=== PATIENT | male | born 1945 | race Caucasian/White ===

== ENCOUNTER 2017-08-22 15:46 | Emergency (ER) | payer MEDICARE, OTHER ==
[2017-08-22] MEDS ORDERED: KETOROLAC TROMETHAMINE INJ 60 MG/2 ML VIAL IM ONE (16:28)
[2017-08-22] MEDS ORDERED: HYDROcodone 10MG/APAP 325MG 1 EA TAB PO ONE (16:28)
--- NOTE | 2017-08-22 16:55 | ED.PDOC ---
History of Present Illness - General Source: patient Exam Limitations: no limitations - History of Present Illness Initial Comments: PT REPORTS TRIPPING AND FALLING UPON GETTING OUT OF BED IN THE MIDDLE OF THE NIGHT. PT NOW REPORTS LEFT THORACIC BACK PAIN THAT IS WORSE WHEN TAKING DEEP BREATHS. PT THINKS HE MAY HAVE BROKEN RIBS. Timing/Duration: 7-24 hours Quality/Severity: moderate, sharpness Improving Factors: immobilization Worsening Factors: movement Associated Symptoms: denies symptoms <Carter Escobar - Last Filed: 08/22/17 16:53> <Lennox Arguello - Last Filed: 08/22/17 20:06> - General Chief Complaint: Back Pain or Injury Stated Complaint: back pain Time Seen by Provider: 08/22/17 16:27 - History of Present Illness Allergies/Adverse Reactions: Allergies Penicillins Allergy (Verified 08/22/17 16:20) Home Medications: Ambulatory Orders Ascorbic Acid [Vitamin C] 500 mg PO DAILY 12/23/14 Aspirin [Baby Aspirin] 81 mg PO QD 12/23/14 Atorvastatin Calcium [Lipitor] 40 mg PO BEDTIME 12/23/14 Metoprolol Tartrate 50 mg PO BID 12/23/14 Hasty-3 Fatty Acids [Fish Oil 1000 mg] 2 cap PO BEDTIME 12/23/14 Olmesartan Medoxomil-Hydrochlo [Benicar Hct 40-25 mg] 1 tab PO BEDTIME 08/22/17 Umeclidinium-Vilanterol [Anoro Ellipta 62.5-25 Mcg/INH] 1 aer IN DAILY 08/22/17 Review of Systems - Review of Systems Constitutional: Denies: chills, fever EENTM: Denies: blurred vision, mouth pain Respiratory: Denies: cough, short of breath Cardiology: Denies: chest pain, palpitations Gastrointestinal/Abdominal: Denies: abdominal pain, vomiting Musculoskeletal: States: back pain. Denies: neck pain Skin: Denies: change in color, dryness Neurological: Denies: headache, paresthesia Endocrine: States: no symptoms reported Hematologic/Lymphatic: States: no symptoms reported <Carter Escobar - Last Filed: 08/22/17 16:53> Past Medical History (General) - Patient Medical History Hx of COPD: Yes Hx Cardiac Disorders: Yes - CAD, CABG Hx Hypertension: Yes Hx Cancer: Yes - epigottis Surgical History: coronary bypass surgery - Vaccination History Hx Influenza Vaccination: Yes Hx Pneumococcal Vaccination: No - Social History Hx Tobacco Use: Yes Hx Alcohol Use: No Hx Substance Use: No Hx Substance Use Treatment: No Hx Depression: No <Carter Escobar - Last Filed: 08/22/17 16:53> Family Medical History - Family History Father Family History: Unknown Living Status: Unknown <Carter Escobar - Last Filed: 08/22/17 16:53> Physical Exam - Physical Exam General Appearance: Alert, Obvious distress, Well Developed, Well Groomed, Well Hydrated Eyes, Ears, Nose, Throat Exam: PERRL/EOMI, normal ENT inspection Neck Exam: non-tender, full range of motion Cardiovascular/Respiratory: regular rate, rhythm, no M/R/G, normal breath sounds , no respiratory distress Gastrointestinal/Abdominal: non tender, soft Back Exam: no vertebral tenderness, other - TENDERNESS TO THE LEFT PARATHORACIC REGION AND LEFT LATERAL CHEST WALL. Extremity Exam: no evidence of injury, normal range of motion Neurologic: no motor/sensory deficits, alert, normal mood/affect, oriented x 3 Skin Exam: normal color, warm/dry <Carter Escobar - Last Filed: 08/22/17 16:53> Progress - Progress Progress: 08/22/17 20:06 08/22/17 17:29 IV Care:Saline Lock per Protoc QSHIFT Telemetry .ONCE Sodium Chloride 0.9% (Flush) [Saline Flush Syringe] 10 ml IV PRN PRN 08/22/17 17:30 Hold Metformin x 48Hrs [id number] Pulse Oximetry Assessment DAILY 08/23/17 09:00 Pulse Ox Daily Laboratory Results WBC 12.5 K/mm3 (4.8-10.8) H 08/22/17 18:00 RBC 5.11 M/mm3 (4.70-6.10) 08/22/17 18:00 Hgb 17.6 gm/dL (14.0-18.0) 08/22/17 18:00 Hct 49.9 % (42.0-52.0) 08/22/17 18:00 MCV 97.7 fl (80.0-94.0) H 08/22/17 18:00 MCH 34.4 pg (27.0-31.0) H 08/22/17 18:00 MCHC 35.3 g/dL (33.0-37.0) 08/22/17 18:00 RDW 13.2 % (11.5-14.5) 08/22/17 18:00 Plt Count 228 K/mm3 (130-400) 08/22/17 18:00 MPV 7.4 fl (7.40-10.4) 08/22/17 18:00 Absolute Neuts (auto) 10.50 K/uL (1.8-6.8) H 08/22/17 18:00 Absolute Lymphs (auto) 1.00 K/uL (1.0-3.4) 08/22/17 18:00 Absolute Monos (auto) 0.90 K/uL (0.2-0.8) H 08/22/17 18:00 Absolute Eos (auto) 0.00 K/uL (0.0-0.4) 08/22/17 18:00 Absolute Basos (auto) 0.00 K/uL (0.0-0.1) 08/22/17 18:00 Neutrophils % 84.0 % (42.0-78.0) H 08/22/17 18:00 Lymphocytes % 7.8 % (20.0-50.0) L 08/22/17 18:00 Monocytes % 7.5 % (2.0-9.0) 08/22/17 18:00 Eosinophils % 0.4 % (1.0-5.0) L 08/22/17 18:00 Basophils % 0.3 % (0.0-2.0) 08/22/17 18:00 PT 10.4 SECONDS (9.4-12.5) 08/22/17 18:00 INR 0.920 08/22/17 18:00 PTT (SP) 30.9 SECONDS (25.1-36.5) 08/22/17 18:00 Sodium 123 mmol/L (135-145) L 08/22/17 18:00 Potassium 4.2 mmol/L (3.6-5.0) 08/22/17 18:00 Chloride 80 mmol/L (101-111) L 08/22/17 18:00 Carbon Dioxide 32 mmol/L (21-31) H 08/22/17 18:00 Anion Gap 15.2 (12-18) 08/22/17 18:00 BUN 13 mg/dL (7-18) 08/22/17 18:00 Creatinine 0.67 mg/dL (0.6-1.3) 08/22/17 18:00 BUN/Creatinine Ratio 19.4 (10-20) 08/22/17 18:00 Random Glucose 110 mg/dL (70-105) H 08/22/17 18:00 Serum Osmolality 248.5 mOsm/L (275-295) L* 08/22/17 18:00 Calcium 9.7 mg/dL (8.4-10.2) 08/22/17 18:00 Total Bilirubin 1.4 mg/dL (0.2-1.0) H 08/22/17 18:00 AST 24 IU/L (10-42) 08/22/17 18:00 ALT 31 IU/L (10-60) 08/22/17 18:00 Alkaline Phosphatase 123 IU/L (42-121) H 08/22/17 18:00 Creatine Kinase 148 IU/L (38-174) 08/22/17 18:00 CK-MB (CK-2) 4.5 ng/mL (0.0-4.4) H 08/22/17 18:00 CK-MB (CK-2) % 3.04 % (0.0-3.5) 08/22/17 18:00 Troponin I < 0.02 ng/mL (0.01-0.05) 08/22/17 18:00 Serum Total Protein 8.0 gm/dL (6.4-8.2) 08/22/17 18:00 Albumin 4.9 g/dl (3.2-5.5) 08/22/17 18:00 Globulin 3.1 gm/dL (2.3-3.5) 08/22/17 18:00 Albumin/Globulin Ratio 1.6 (1.1-1.9) 08/22/17 18:00 - Consult/PCP Time Called: 21:50 Consult/PCP: dr. Youngblood Consult Reason/Comments: multiple rib fractures possible spleenic injury advise transfer <Lennox Arguello - Last Filed: 08/22/17 20:06> Departure <Carter Escobar - Last Filed: 08/22/17 16:53> - Departure Time of Disposition: 20:00 Diet: other Activity: other <Lennox Arguello - Last Filed: 08/22/17 20:06> - Departure Clinical Impression: Multiple rib fractures involving four or more ribs, Splenic mass Disposition: Transfer to Hospital Condition: Good Departure Forms: ED Discharge - Pt. Copy, Patient Portal Self Enrollment Instructions: DI for Low Back Pain Referrals: CHARMAINE GAMBOA [Primary Care Provider] - 1-2 Weeks Home Medications: Ambulatory Orders Ascorbic Acid [Vitamin C] 500 mg PO DAILY 12/23/14 Aspirin [Baby Aspirin] 81 mg PO QD 12/23/14 Atorvastatin Calcium [Lipitor] 40 mg PO BEDTIME 12/23/14 Metoprolol Tartrate 50 mg PO BID 12/23/14 Hasty-3 Fatty Acids [Fish Oil 1000 mg] 2 cap PO BEDTIME 12/23/14 Olmesartan Medoxomil-Hydrochlo [Benicar Hct 40-25 mg] 1 tab PO BEDTIME 08/22/17 Umeclidinium-Vilanterol [Anoro Ellipta 62.5-25 Mcg/INH] 1 aer IN DAILY 08/22/17 Critical Care Note - Critical Care Note Total Time (mins): 40 <Lennox Arguello - Last Filed: 08/22/17 20:06> Transfer to Outside Facility - Transfer Information Accepting Provider:: Dr. Cruz Accepting Facility: [facility] Reason for Transfer: required specialist not available - Trauma Surgery <Lennox Arguello - Last Filed: 08/22/17 20:06>
--- NOTE | 2017-08-22 17:22 | RAD ---
EXAM DESCRIPTION: Ribs,Left 3 Views CLINICAL HISTORY: 72 years Male CHEST PAIN S/P FALL COMPARISON: 12/23/2014 FINDINGS: Heart size is stable. Mild elevation the left hemidiaphragm. Calcified mass in the left midlung field which appears stable. Findings concerning for acute fractures of the posterior lateral left second rib and fractures of the posterior left fourth through ninth ribs. Small amount of atelectasis in the left lung base. Small effusion is not excluded. IMPRESSION: Nondisplaced left rib fractures involving the second and the fourth through ninth ribs with some associated atelectasis in the left lung base and possible small amount of fluid No pneumothorax noted Electronically signed by: Ana Lilia Frederick 08/22/2017 5:20 PM PHARMACY SALES ASSISTANT
[2017-08-22] MEDS ORDERED: SODIUM CHLORIDE 0.9% (FLUSH) 10 ML SYG IV PRN (17:29)
--- NOTE | 2017-08-22 19:23 | CT ---
EXAM DESCRIPTION: Chest w/Contrast CLINICAL HISTORY: chest trauma, multiple rib fxs COMPARISON: None Available. TECHNIQUE: Contiguous axial images of the chest were obtained from the thoracic inlet up to the upper abdomen followed by reconstruction images. This exam was performed according to our departmental dose-optimization program, which includes automated exposure control, adjustment of the mA and/or kV according to patient size and/or use of iterative reconstruction technique. FINDINGS: There is a calcified 2.9 cm mass in the left anterior lung. There is a possible mass of the superior spleen. Hematoma is not excluded. This lesion is not particularly well-defined but measures approximately 4.2 cm AP. There are fractures of the left eighth, ninth ribs posteriorly. Bony degenerative changes are present. No other acute bony abnormality. No pneumothorax. Nonspecific 5 mm nodules at the right posterior lateral lung. Spiculated nodule seen in the right posterolateral lung on image 34, and measures approximately 12 mm overall. At the posterior left lung base is a 4 mm nonspecific nodule and a 5 mm nonspecific nodule. Two poorly defined nodular densities are seen at the left anterior lung and measure less than 5 mm each. The aorta is of normal contour and tapering. IMPRESSION: Pulmonary nodules. Left rib fractures. Possible hematoma versus high attenuation poorly defined lesion in the spleen of other etiology. Neoplasm is not excluded. Follow-up is recommended. Electronically signed by: Eduardo Thornton 08/22/2017 7:21 PM ALARM MECHANISM ADJUSTER
[2017-08-22 20:20] VITALS: BP 135/74; TEMP 97.6; O2SAT 94
== END 2017-08-22 20:40 | disposition short-term general hospital (02) ==
LOC: ER 15:46
DX: S22.42XA Multiple fractures of ribs, left side, initial encounter for closed fracture (principal); R16.1 Splenomegaly, not elsewhere classified; J44.9 Chronic obstructive pulmonary disease, unspecified; I25.10 Atherosclerotic heart disease of native coronary artery without angina pectoris; I10 Essential (primary) hypertension; Z95.1 Presence of aortocoronary bypass graft; Z79.82 Long term (current) use of aspirin; Z88.0 Allergy status to penicillin; Z79.899 Other long term (current) drug therapy; Z85.89 Personal history of malignant neoplasm of other organs and systems; W01.0XXA Fall on same level from slipping, tripping and stumbling without subsequent striking against object, initial encounter; Y92.009 Unspecified place in unspecified non-institutional (private) residence as the place of occurrence of the external cause
CPT/HCPCS: 36415; 71101; 71260; 80053; 82550; 82553; 84484; 85025; 85610; 85730; 94760; J1885

== ENCOUNTER 2017-08-28 15:10 | Inpatient (IN) | payer MEDICARE, OTHER ==
[2017-08-28] MEDS ORDERED: SODIUM PHOS/BIPHOS ENEMA ADULT 133 ML BTTL PR PRN (16:04)
[2017-08-28] MEDS ORDERED: ACETAMINOPHEN 500 MG TAB PO PRN (16:04)
[2017-08-28] MEDS ORDERED: TEMAZEPAM 15 MG CAP PO PRN (16:04)
[2017-08-28] MEDS ORDERED: MAGNESIUM HYDROXIDE 30 ML UD PO PRN (16:04)
[2017-08-28] MEDS ORDERED: HYDROcodone 5MG/APAP 325MG 1 EA TAB PO PRN (16:04)
--- NOTE | 2017-08-28 16:19 | PCM.CORE ---
Physician DVT/VTE - Nurse DVT Assessment & Total Each Risk Factor Represents 3 Points: Medical PT with Hx of CO, CHF, Severe infection/sepsis Each Risk Factor Represents 2 Points: Age 60-74 Each Risk Factor Represents 1 Point: Hx of smoking past year Each Risk Factor is 1 Point: Obesity (BMI >25) DVT Assessment Score: 7 - 3-4 High Risk Pharmacological: Enoxaparin 40 mg SQ Daily - 5 or more Very High Risk Treatments: Early Ambulation *, Sequential Compression Device
--- NOTE | 2017-08-28 17:11 | HP ---
SUPERVISING PHYSICIAN: Hosea Rodriguez MD REASON FOR ADMISSION: Strengthening. HISTORY OF PRESENT ILLNESS: This is a 72-year-old male patient who originally sustained a fall on 08/21/17. At this time, he was found to have multiple rib fractures on the left and reportedly second rib and the fourth through ninth ribs. At the same time, CT showed he had a splenic hematoma. For that reason, he was transferred from [facility] Emergency Room to [facility]. During this time, he was admitted under trauma services and was seen also by critical care services and psychiatry. He had some delirium which was attributed to his medical condition in addition to the fact that he has a history of alcohol abuse. During his admission, his lab work remained stable. He was placed on alcohol withdrawal protocol, but after he was examined by psychiatry, the benzodiazepines were discontinued. He remained stable to the point that he could be discharged from the Acute setting , but required Swing Bed admission. At the time of examination, the patient is alert. He does complain of some discomfort on the left side. He still states that he is having a productive cough, however, it is clear in color at this time. He was noted to have some hyponatremia on his labs at [facility], but this was attributed to his chronic alcohol abuse as well. PAST MEDICAL HISTORY: 1. Coronary artery disease. 2. Chronic obstructive pulmonary disease. 3. Hyperlipidemia. 4. Hypertension. 5. Chronic alcohol abuse. 6. Nicotine dependency. PAST SURGICAL HISTORY: 1. Coronary artery bypass grafting. MEDICATIONS: 1. Metoprolol 50 mg b.i.d. 2. Benicar/HCTZ 40/25 mg p.o. daily. 3. Atorvastatin 40 mg p.o. daily. 4. Aspirin 81 mg p.o. daily. 5. Vitamin C 500 mg p.o. daily. 6. Fish oil 1000 mg p.o. b.i.d. 7. Anoro Ellipta 62.5 mcg/25 mcg 1 puff daily. ALLERGIES: PENICILLIN. FAMILY HISTORY: Reviewed and deemed noncontributory. SOCIAL HISTORY: The patient is a smoker who smokes 2 to 3 cigars a day. He also admits to drinking 4 glasses of whiskey per day. He is . REVIEW OF SYSTEMS: CONSTITUTIONAL: Denies fever, chills, no recent weight loss or weight gain. HEENT: No headaches, vision changes, ear pain, nasal congestion or throat pain. CARDIOVASCULAR: No chest pain, palpitations, peripheral edema. RESPIRATORY: Positive for cough. No hemoptysis, no pleuritic chest pain. He does have some pain with inspiration due to his rib fractures. GASTROINTESTINAL: No nausea, vomiting, diarrhea, constipation or abdominal pain. GENITOURINARY: No dysuria, frequency, or flank pain. SKIN: No rashes, lesions, or wounds. ENDOCRINE: No polydipsia, polyuria, polyphagia, no heat or cold intolerance. PSYCHIATRIC: He was noted to have delirium at [facility]. No depression or suicidal tendencies. PHYSICAL EXAMINATION: VITAL SIGNS: GENERAL: Mr. Fleming is a 72-year-old male patient in no acute distress at this time. HEENT: Normocephalic, atraumatic. Pupils are equal and reactive. Nose with no drainage. Throat with moist buccal mucosa. NECK: Supple. Midline trachea. No jugular venous distention. CHEST: Symmetrical with equal rise and fall of the chest with inspiration and expiration. Lungs sounds with expiratory wheezing bilaterally. There are no rhonchi or rales noted. CARDIOVASCULAR: Regular rate and rhythm. Normal S1, S2. ABDOMEN: Soft. Positive bowel sounds. No tenderness to palpation. No organomegaly. GENITOURINARY: Exam deferred. EXTREMITIES: Lower extremities with no significant edema. Positive peripheral pulses at 2+. Capillary refill less than 2 seconds. NEUROLOGIC: The patient is alert and oriented. He moves all extremities. Extraocular muscles are intact. LABORATORY: Labs and radiology reports have been reviewed from [facility]. ASSESSMENT: 1. Decondition/diffuse myopathy. 2. Multiple rib fractures. 3. Splenic hematoma. 4. ETOH abuse. 5. Nicotine dependency with chronic obstructive pulmonary disease. PLAN: 1. At this point, status post fall, the patient will stay in Swing Bed for currently an undetermined amount of days to increase strength and conditioning prior to being able to be discharged home. 2. Secondary to the patient's history of smoking as well as his rib fractures, pulmonary toileting will need to be encouraged. At this time, we will resume his DuoNeb and ensure that he is coughing and deep breathing as well as not deteriorating. 3. Physical therapy will be consulted and activity per their orders. 4. We will resume his diet as well as home medications at this time as well. 5. DVT prophylaxis with Lovenox as well as SCDs. 6. We will check some labs in the morning including CBC and chemistries. The patient does have a noted splenic hematoma. However, the hemoglobin remained stable at [facility], but given the fact that we are starting DVT prophylaxis, we will need to check his labs in the morning. We will also check his chest x-ray to ensure there is no interval development of an infiltrate. #[id number] [facility]
[2017-08-28] MEDS: ENOXAPARIN SODIUM 40 MG/0.4 ML SYG SUBCU SCH ×2 (18:56→19:20)
[2017-08-28] MEDS: IPRATROPIUM/ALBUTEROL 3 ML VIAL INH SCH (21:13)
--- NOTE | 2017-08-29 07:17 | RAD ---
EXAM: Two view chest. INDICATION: Rib fractures. COMPARISON: Chest x-ray and CT: 08/22/2017. FINDINGS: There is a left basilar airspace opacity with small left pleural effusion. There is a calcified granuloma along the left midlung. Nondisplaced left-sided eighth and ninth rib fractures are better appreciated on the prior CT scan. There is no pneumothorax. IMPRESSION: Left basilar airspace opacity with small left pleural effusion. The nondisplaced left sided rib fractures are better appreciated on the prior CT scan Electronically signed by: Ajay Mcconnell MD 08/29/2017 7:16 AM [facility] Workstation: [id number]
[2017-08-29] MEDS: IPRATROPIUM/ALBUTEROL 3 ML VIAL INH SCH ×4 (08:35→20:30)
[2017-08-29] MEDS: ENOXAPARIN SODIUM 40 MG/0.4 ML SYG SUBCU SCH (10:00)
[2017-08-29] MEDS: DOCUSATE SODIUM 100 MG CAP PO SCH (10:00)
[2017-08-29] MEDS: NON-FORMULARY MEDICATION 1 EA MIS (Umeclidinium-Vilanterol [Anoro Ellipta 62.5-25 Mcg/Inh] IN SCH (14:05)
[2017-08-29] MEDS ORDERED: METOPROLOL TARTRATE 50 MG TAB ONE (15:51)
[2017-08-29] MEDS: hydroCHLOROthiazide 25 MG TAB PO SCH (15:54)
[2017-08-29] MEDS: GABAPENTIN 100 MG CAP PO SCH ×2 (15:54→20:53)
[2017-08-29] MEDS: ASPIRIN (CHEWABLE) 81 MG TAB PO SCH (15:54)
[2017-08-29] MEDS: NON-FORMULARY MEDICATION 1 EA MIS (Olmesartan Medoxomil [Benicar] 20 MG) PO SCH (15:54)
[2017-08-29] MEDS: METOPROLOL TARTRATE 50 MG TAB PO SCH (17:17)
[2017-08-29] MEDS: ATORVASTATIN 20 MG TAB PO SCH (20:53)
[2017-08-30] MEDS ORDERED: ASCORBIC ACID 500 MG TAB ONE (07:11)
[2017-08-30] MEDS: METOPROLOL TARTRATE 50 MG TAB PO SCH ×2 (07:45→22:21)
[2017-08-30] MEDS: IPRATROPIUM/ALBUTEROL 3 ML VIAL INH SCH ×3 (08:23→20:25)
[2017-08-30] MEDS: NON-FORMULARY MEDICATION 1 EA MIS (Umeclidinium-Vilanterol [Anoro Ellipta 62.5-25 Mcg/Inh] IN SCH (08:26)
[2017-08-30] MEDS: DOCUSATE SODIUM 100 MG CAP PO SCH (09:10)
[2017-08-30] MEDS: ASCORBIC ACID 500 MG TAB PO SCH (09:10)
[2017-08-30] MEDS: GABAPENTIN 100 MG CAP PO SCH ×3 (09:10→21:10)
[2017-08-30] MEDS: hydroCHLOROthiazide 25 MG TAB PO SCH (09:10)
[2017-08-30] MEDS: ASPIRIN (CHEWABLE) 81 MG TAB PO SCH (09:10)
[2017-08-30] MEDS: ENOXAPARIN SODIUM 40 MG/0.4 ML SYG SUBCU SCH (09:11)
[2017-08-30] MEDS: NON-FORMULARY MEDICATION 1 EA MIS (Olmesartan Medoxomil [Benicar] 20 MG) PO SCH (10:05)
[2017-08-30] MEDS: VALSARTAN 80 MG TAB PO SCH (11:49)
[2017-08-30] MEDS: ATORVASTATIN 20 MG TAB PO SCH (21:10)
[2017-08-31] MEDS ORDERED: NON-FORMULARY MEDICATION 1 EA MIS (Umeclidinium-Vilanterol [Anoro Ellipta 62.5-25 Mcg/Inh] INH SCH (08:00)
[2017-08-31] MEDS: ENOXAPARIN SODIUM 40 MG/0.4 ML SYG SUBCU SCH (08:18)
[2017-08-31] MEDS: ASPIRIN (CHEWABLE) 81 MG TAB PO SCH (08:18)
[2017-08-31] MEDS: DOCUSATE SODIUM 100 MG CAP PO SCH (08:18)
[2017-08-31] MEDS: VALSARTAN 80 MG TAB PO SCH (08:18)
[2017-08-31] MEDS: hydroCHLOROthiazide 25 MG TAB PO SCH (08:18)
[2017-08-31] MEDS: ASCORBIC ACID 500 MG TAB PO SCH (08:18)
[2017-08-31] MEDS: METOPROLOL TARTRATE 50 MG TAB PO SCH (08:18)
[2017-08-31] MEDS: GABAPENTIN 100 MG CAP PO SCH (08:35)
[2017-08-31] MEDS: IPRATROPIUM/ALBUTEROL 3 ML VIAL INH SCH (08:38)
[2017-08-31 09:12] VITALS: BP 117/66; TEMP 97.1; O2SAT 95
--- NOTE | 2017-08-31 10:08 | DS ---
SUPERVISING PHYSICIAN: Hosea Rodriguez MD DISCHARGE DIAGNOSIS: 1. Decondition/diffuse myopathy. 2. Multiple rib fractures. 3. Splenic hematoma. 4. ETOH abuse. 5. Nicotine dependency with chronic obstructive pulmonary disease. HISTORY OF PRESENT ILLNESS: This is a 72-year-old male patient who originally sustained a fall on 08/21/17. He was found to have multiple rib fractures on the left, reportedly second rib and the fourth through ninth ribs. At the same time, CT showed he had a splenic hematoma. For that reason, he was transferred from [facility] Emergency Room to [facility]. During this time, he was admitted under trauma services and was seen also by critical care services and psychiatry. He had some delirium which was attributed to his medical condition in addition to the fact that he has a history of alcohol abuse. During his admission, his lab work remained stable. He was placed on alcohol withdrawal protocol, but after he was examined by psychiatry, the benzodiazepines were discontinued. He remained stable to the point that he could be discharged from the Acute setting, but required Swing Bed admission. At the time of examination, the patient is alert. He had some discomfort on the left side. He continued to have a productive cough. Initially, he was noted to have some hyponatremia on his labs at [facility], but this was attributed to his chronic alcohol abuse as well. He was transferred from [facility] to [facility] for Swing Bed admission. HOSPITAL COURSE: He was admitted go [facility] for Swing Bed. He continued with his strengthening and conditioning per physical therapy. His vital signs remained stable during his admission here. His lab work was also stable with the exception of his sodium, which was slightly low and, again, most likely due to his previous alcohol use. He will be discharged home today. DISCHARGE PLAN: The patient will be discharged home in stable condition. He is to resume his previous diet and that includes 1500 mL fluid 24 hour restriction. He is also encouraged to stop his alcohol intake. He is to followup with his primary care provider, Tyler Martinez in [place] within the next one to two weeks. At that point, he may need to be referred to physical therapy by Dr. Martinez. He is to return to the hospital or to his physician's office for any further complications or problems. He is to increase his activity as tolerated. DISCHARGE MEDICATIONS: 1. Fish oil. 2. Baby aspirin. 3. Vitamin C. 4. Metoprolol. 5. Atorvastatin. 6. Benicar/HCT. 7. Anoro. 8. Hydrochlorothiazide. 9. Hydrocodone. 10. Gabapentin. 11. Flomax. 12. Benicar. Dr. Rodriguez is the collaborating physician and available for consultation. #[id number] MTDD
== END 2017-08-31 11:20 | disposition home or self-care (01) | DRG 92 ==
LOC: MS 15:10
PROVIDERS: ADMIT Family Medicine; ATTEND Nurse Practitioner
DX: G72.9 Myopathy, unspecified (principal); E87.1 Hypo-osmolality and hyponatremia; F10.10 Alcohol abuse, uncomplicated; S22.43XD Multiple fractures of ribs, bilateral, subsequent encounter for fracture with routine healing; I25.10 Atherosclerotic heart disease of native coronary artery without angina pectoris; J44.9 Chronic obstructive pulmonary disease, unspecified; E78.5 Hyperlipidemia, unspecified; I10 Essential (primary) hypertension; F17.210 Nicotine dependence, cigarettes, uncomplicated; Z79.82 Long term (current) use of aspirin; Z79.899 Other long term (current) drug therapy; Z95.1 Presence of aortocoronary bypass graft; Z88.0 Allergy status to penicillin; S36.029D Unspecified contusion of spleen, subsequent encounter

== ENCOUNTER → 2017-11-23 | Outpatient (CLI) | payer MEDICARE, OTHER | LOC: LAB.O 10:11 | PROVIDERS: ATTEND Family Medicine | DX: E03.9 Hypothyroidism, unspecified (principal) ==

== ENCOUNTER → 2018-02-22 | Outpatient (CLI) | payer MEDICARE, OTHER ==
--- NOTE | 2018-02-23 16:34 | CT ---
EXAM DESCRIPTION: Soft Tissue Neck w/Contrast: Computed Tomography CLINICAL HISTORY: 73 years Male, CHRONIC LARYNGITIS J37.0 COMPARISON: CT neck soft tissues with contrast 11/05/2015. CT scan chest with contrast 08/22/2017. TECHNIQUE: Spiral, axial 2.5 mm scans through the neck soft tissues after infusion of IV contrast. Sagittal and coronal 2.0 mm reconstructions. No adverse reactions. Total Exam DLP: 393.38 mGy-cm. This exam was performed according to our departmental CT dose-optimization program which includes automated exposure control, adjustment of the mA and/or kV according to patient size and/or use of iterative reconstruction technique; to reduce radiation dose to as low as reasonably achievable (ALARA). FINDINGS: 2 enhancing nodules are noted in the left lobe of the thyroid gland. Posterior and anterior nodule transverse measurement is 1.6 cm. Central nonenhancing segment. Minimal enhancement and anterior calcification of the right lobe. Small lymph nodes abutting the bilateral gland. No significant air-fluid levels/sinusitis in the nasopharynx, minimal chronic mucoperiosteal thickening. Hypertrophic bilateral ethmoid air cells encroaching on the bilateral nasal passageways and extending into the superior turbinates bilaterally. No posterior nasopharynx effacement or displacement. The uvula appears prominent in the midline extending into the oropharynx with narrowing at the base of the tongue. In the hypopharynx, the normal orientation of the piriform sinuses and vallecula is not seen with the vallecula distended and piriform sinuses appear to be continuous with the vallecula. Inferior to this, hypertrophy of the epiglottis which demonstrates a U-shaped with the base of the oriented anteriorly, and thickening of the aryepiglottic folds. Minimal air seen in the airway at the level of the arytenoid cartilage cartilages,, but nondisplaced. Minimal air at the level of the thyroid cartilage with normal caliber in the glottis and the level of the cricoid cartilages. Small lymph nodes in the paracervical space, spaces, carotid spaces, and parapharyngeal spaces. No subcutaneous edema abnormal contrast enhancement or mass. Normal size density and enhancement of the submandibular glands and parotid glands as well as the sublingual glands. Multiple levels of spondylosis of the cervical spine at C4-5, C5-6, and C6-7 with canal foramen and significant bilateral neural foraminal narrowing or stenosis. Minimal dilated airspaces centrally within the included lung parenchyma but no pneumothorax. IMPRESSION: 1. Hypertrophy of the uvula. This appears symmetric. Hypertrophy of the epiglottis with anterior folding of the epiglottis and thickening of the aryepiglottic folds with enhancement. Significant central narrowing of the airway at the level of the thyroid cartilage and arytenoid cartilages with normal caliber at the glottis. This is symmetric. More likely to be inflammatory cause been neoplastic. No asymmetric soft tissue masses are enlarged lymph nodes adjacent to the airway. Consider indirect laryngoscopy. 2. Nasopharynx is unremarkable. Hypertrophic changes in the ethmoid air cells extending into the bilateral superior nasal turbinates and the nasal passageway. 3. 2 large enhancing nodules in the left lobe the thyroid gland with central low-density, transverse axis greater than 1.5 cm. Consider follow-up thyroid ultrasound, according to [facility] Best Practice recommendations for follow-up of incidental thyroid nodules. Please see below.* 4. At least 3 levels of significant cervical spondylosis and possible cervical neural foraminal significant narrowing or stenosis. Correlate for radiculopathy and follow-up cross-sectional imaging may be helpful. 5. Centrilobular emphysematous changes in the included upper lobes. * 1.Further evaluation by thyroid US recommended for: -Solitary ITN with high risk imaging features (locally invasive nodule or suspicious lymph nodes) -Solitary ITN of any size in pediatric pts. <= 18 years of age -Solitary ITN >= 1 cm in axial plane in pts. between 18 and 35 years of age -Solitary ITN >= 1.5 cm in axial plane in pts >= 35 years of age -Heterogeneous enlarged thyroid gland -ITN avid on FDG-PET or other nuclear medicine (MIBI and octreotide) scans. FNA biopsy is also recommended for PET avid nodules. 2.No f/u imaging is recommended for ITNs not meeting the above criteria. 3.For multiple thyroid nodules, the above recommendations for solitary ITN are to be applied to the largest nodule. 4.No US or f/u recommended for ITNs without high risk features in pts. with limited life expectancy or significant co-morbidities, unless clinically warranted. 5.These recommendations do not apply to pts. w/ increased risk for thyroid cancer or pts. with symptomatic thyroid disease. Recommendations for f/u of Incidental Thyroid Nodules (ITN) found on CT, MR, NM and Extrathyroidal US are based upon the ACR white paper and [place] 3-tiered system for managing ITNs: J Am Leon Radiol. 2015 Oct;12(2): 143-50 Electronically signed by: Eduardo Mason MD 02/23/2018 4:33 PM CDT
== END ==
LOC: LAB.O 10:24
PROVIDERS: ATTEND Otolaryngology Otolaryngic Allergy
DX: J37.0 Chronic laryngitis (principal); J35.3 Hypertrophy of tonsils with hypertrophy of adenoids; E04.9 Nontoxic goiter, unspecified

== ENCOUNTER → 2018-04-09 | Outpatient (CLI) | payer MEDICARE, OTHER ==
--- NOTE | 2018-04-09 14:32 | MRI ---
EXAM DESCRIPTION: Neck w/wo Contrast. Magnetic Resonance Imaging. CLINICAL HISTORY: MASS AND LUMP COMPARISON: CT scan of the neck soft tissues with IV contrast 02/22/2018. TECHNIQUE: Multiplanar MRI, neck soft tissues, multiple sequences, without and with gadolinium IV contrast. No adverse reactions.. Technically difficult study due to patient breathing and swallowing during the examination. FINDINGS: Again noted is thickening of the uvula with edema and extending bilaterally to the belle of the hypopharynx and inferior oropharynx. Enhancement also noted in the uvula with extension of soft tissue into the posterior left lateral hypopharynx. Minimal asymmetry but no soft tissue edema or enhancement in the wall of the hypopharynx. Similar appearance to the neck CT scan. No enhancing nodules mass or edema in the adjacent bilateral oral pharyngeal belle. More inferiorly, the epiglottis appears thickened and folded posterior, or divided, forming a U-shape with the base of the "U" anterior. Edema in the epiglottis with enhancement. Also edema and enhancement of the johnie-epiglottic folds. Significant narrowing of the oropharynx at this level which is just above the hyoid bone. Thickening and edema circumferentially around the hypopharynx with narrowing extending to the glottis and larynx. Minimal enhancement anterior to the larynx at the level of the thyroid cartilage. Normal caliber of the airway inferior to the larynx with no edema signal or enhancement. Normal signal in the hyoid bone in the thyroid cartilage with normal enhancement. Again noted are 2 large nodules in the left lobe of the thyroid gland with enhancement. Normal signal intensity in the submandibular glands parotid glands and sublingual glands with normal enhancement. Small lymph nodes are seen in the paracervical space, carotid space, and parapharyngeal space but not enlarged in no significant enhancement. No fluid collection. Again noted: are multiple levels of spondylosis with posterior narrowing of the canal and encroaching on the cord and narrowing of the neural foramen. IMPRESSION: 1. Minimal enlargement of the uvula with edema and enhancement which extends to the left posterior lateral hypopharyngeal wall. No abnormal edema or enhancement in the hypopharyngeal wall lateral to the uvula, and no new soft tissue masses. Narrowing of the hypopharynx. No significant change since the prior study. Most likely inflammatory, or postsurgical change. 2. Again noted is thickening and infolding of the epiglottis with edema and enhancement extending into the aryepiglottic folds. Narrowing of the glottis and larynx inferior to the epiglottis but no significant change since the prior study. Could this represent postsurgical changes? No nodules or enhancement in the larynx. Normal caliber of the airway inferior to the larynx. 3. No remote soft tissue masses, adenopathy, or enhancement, involving lymph nodes or soft tissues of the neck. Again noted are large nodules in the left lobe of the thyroid gland and ultrasound thyroid gland is recommended with consideration of possible fine-needle biopsy to follow. Electronically signed by: Eduardo Msaon MD 04/09/2018 2:25 PM CDT
== END ==
LOC: MRI 08:00
PROVIDERS: ATTEND Otolaryngology
DX: R22.1 Localized swelling, mass and lump, neck (principal); E04.9 Nontoxic goiter, unspecified

== ENCOUNTER → 2019-03-13 | Outpatient (CLI) | payer MEDICARE, OTHER ==
--- NOTE | 2019-03-14 12:24 | RAD ---
EXAM DESCRIPTION: Pelvis, 2 radiographs CLINICAL HISTORY: M79.604 FINDINGS/ IMPRESSION: No proximal femoral or pelvic fracture. Calcific tendinitis at the gluteus attachments to the trochanter bilaterally left greater than right and common hamstring origins right greater than left. Normal bone mineralization. No lytic or blastic bony lesion Atherosclerotic vascular calcifications Electronically signed by: Hosea Foley MD 03/14/2019 12:22 PM CDT
--- NOTE | 2019-03-14 12:46 | RAD ---
EXAM DESCRIPTION: Hip,Right 2 Views CLINICAL HISTORY: M79.604 hip pain COMPARISON: None. IMPRESSION: 2 views of the right hip show no acute fracture, focal bone destruction, or joint dislocation. Mild joint space narrowing and sclerotic changes to the superior lateral acetabulum with osteophytic ridging is seen consistent with mild osteoarthritis. Moderate vascular calcifications are seen. Electronically signed by: Esvin Franks MD 03/14/2019 12:43 PM CDT
--- NOTE | 2019-03-14 12:47 | RAD ---
EXAM DESCRIPTION: Ankle,Right 3 Views CLINICAL HISTORY: M79.604 right ankle pain COMPARISON: None. IMPRESSION: 3 views of the right ankle show no acute fracture, focal bone destruction, or joint dislocation. Ankle mortise appears maintained. Severe vascular calcifications are seen. Electronically signed by: Esvin Franks MD 03/14/2019 12:45 PM CDT
--- NOTE | 2019-03-14 12:48 | RAD ---
EXAM DESCRIPTION: Foot,Right 3 Views CLINICAL HISTORY: M79.604 foot pain COMPARISON: None. IMPRESSION: 3 views of the right foot show no acute fracture, focal bone destruction, or joint dislocation. Hammertoe deformity of the second through fifth digits is seen. Mild joint space narrowing and joint line osteophytes of the first metatarsophalangeal joint consistent with mild osteoarthritic changes. Moderate osteophytic navicular is seen. Severe vascular calcifications are seen. Patient is slightly rotated on lateral projection limiting visualization of the talus. Electronically signed by: Esvin Franks MD 03/14/2019 12:46 PM CDT
--- NOTE | 2019-03-14 13:07 | RAD ---
EXAM DESCRIPTION: Knee,Right Complete CLINICAL HISTORY: M79.604 pain in the knee COMPARISON: None. IMPRESSION: 4 standing views of the right knee show no acute fracture, focal bone destruction, or joint dislocation. No advanced arthrosis. Severe vascular calcifications are seen. No joint effusion. Surgical clips in the soft tissue medial to the proximal tibia could be related to previous vein graft harvest. Electronically signed by: Esvin Franks MD 03/14/2019 1:04 PM CDT
== END ==
LOC: RAD 08:44
PROVIDERS: ATTEND Orthopaedic Surgery
DX: I70.203 Unspecified atherosclerosis of native arteries of extremities, bilateral legs (principal); M20.41 Other hammer toe(s) (acquired), right foot; M25.774 Osteophyte, right foot; M25.751 Osteophyte, right hip; M65.251 Calcific tendinitis, right thigh; M65.252 Calcific tendinitis, left thigh

== ENCOUNTER → 2019-04-18 | Outpatient (CLI) | payer MEDICARE, OTHER ==
--- NOTE | 2019-04-18 10:29 | MRI ---
EXAM DESCRIPTION: Brain w/oContrast CLINICAL HISTORY: STENOSIS LEFT ANTERIOR CEREBRAL ARTERY COMPARISON: None available TECHNIQUE: Non contrast MRI of the brain is performed according to our usual protocol including multiplanar multi sequence technique. FINDINGS: Sagittal T1 images show intact corpus callosum. Normal pituitary gland with normal T1 appearance of the marlene and medulla and upper cervical cord. Normal signal intensity within the clivus and calvarium. Axial T2 fat sat images reveal preservation of intracranial vascular flow voids. Normal white matter T2 signal intensity. Extensive white matter hyperintensity. Prominent ventricles and sulci consistent with age-related cerebral volume loss. The globes appear intact and symmetrical. No abnormal fluid signal in the paranasal sinuses, tympanic cavities or mastoid air cells. Axial flair images show multifocal and confluent areas of increased signal intensity in the cerebral white matter consistent with chronic microvascular ischemic disease. Diffusion weighted images are negative for focal intense increased signal intensity in the brain parenchyma to suggest restricted diffusion. ADC mapping is negative. Axial T1 images show normal white-white matter differentiation. No high signal intensity hemorrhagic lesion of the brain parenchyma. No subdural hematoma. Axial susceptibility weighted images are negative for focal signal loss to suggest abnormal brain parenchymal calcification or hemosiderin deposition. IMPRESSION: Senescent cerebral volume loss with moderate chronic microvascular ischemic changes in the cerebral white matter. No acute intracranial pathologic process. Electronically signed by: Jaylon Lemons MD 04/18/2019 10:27 AM CDT
== END ==
LOC: MRI 09:00
PROVIDERS: ATTEND Psychiatry & Neurology Neurology
DX: I66.12 Occlusion and stenosis of left anterior cerebral artery (principal); I67.82 Cerebral ischemia; M51.16 Intervertebral disc disorders with radiculopathy, lumbar region

== ENCOUNTER → 2019-04-21 | Outpatient (CLI) | payer MEDICARE, OTHER ==
--- NOTE | 2019-04-21 14:38 | MRI ---
EXAM DESCRIPTION: Lumbar Spine w/o Contrast : Magnetic Resonance Imaging. CLINICAL HISTORY: RADICULOPATHY COMPARISON: None. TECHNIQUE: Multiplanar, multiple standard sequences, non contrast MRI, lumbar spine. FINDINGS: L5-S1: This disc space is completely imaged on axial series 501, image 3. Minimal posterior disc space loss and minimal desiccation. Posterior midline 3 mm bulge abutting the thecal sac. Posterior elements unremarkable. Mild canal narrowing. Bilateral bony abutment of the nerve roots in the foramina which are mildly narrowed. L4-L5: Disc desiccation with no disc space loss or significant bulge. Bilateral hypertrophic facet arthrosis and flavum ligament thickening with AP canal diameter 9 mm. Mild right foraminal narrowing with left foramen patent. L3-L4: Minimal disc desiccation with no significant bulging. Bilateral posterior ligament thickening with minimal facet hypertrophic arthrosis. Moderate canal narrowing. Bilateral mild foraminal narrowing more on the right. L2-L3: Minimal anterior disc bulging and marginal spurs. Schmorl's node inferior L2. Bilateral trace disc bulge into the foramina which are mildly narrow. Mild narrowing also of the canal with bilateral flavum ligament thickening. L1-L2: Minimal disc desiccation with posterior disc space narrowing. 3 mm retrolisthesis. Tiny posterior disc bulge. AP canal diameter 12 mm. Elevation of the inferior L1 endplate with marrow edema in the endplate and anteriorly in the vertebral body. Anterior vertebral body cortical height is 2 cm at L1 and 2.7 cm at T12. No marrow edema in the posterior vertebral body or pedicles. T12-L1: Normal signal in the disc with disc space preserved. No bulging. Posterior elements are unremarkable. Canal and foramina are patent. Conus terminates just above the L1-L2 disc space. No significant scoliosis. Paravertebral soft tissues are negative.. Normal marrow signal in the remaining vertebral bodies and the posterior elements. Vertebral bodies are not compressed at any level. IMPRESSION: 1. Subacute compression injury of the inferior L1 endplate anteriorly with its 7 mm loss of height of the anterior vertebral body and marrow edema in the anterior and mid vertebral body. This is partially obscured by artifact. 3 mm retropulsion of the inferior endplate versus 3 mm grade 1 L1-L2 retrolisthesis. Also bulging disc. No canal or foraminal stenosis. 2. Bilateral hypertrophic facet arthrosis and ligament hypertrophy at L4-L5 with mild central canal stenosis. No significant disc bulging 2. Multiple levels of disc desiccation but no canal or foraminal stenosis at other levels. Minimal hypertrophic facet arthrosis and posterior flavum ligament thickening at several levels. Electronically signed by: Eduardo Mason MD 04/21/2019 2:36 PM CDT
== END ==
LOC: MRI 10:00
PROVIDERS: ATTEND Psychiatry & Neurology Neurology
DX: M51.16 Intervertebral disc disorders with radiculopathy, lumbar region (principal); M43.16 Spondylolisthesis, lumbar region; I66.12 Occlusion and stenosis of left anterior cerebral artery